=== PATIENT | female | born 1980 | race Caucasian/White ===

== ENCOUNTER 2017-11-05 22:12 | Emergency (ER) | payer OTHER ==
[2017-11-05] MEDS: LIDOCAINE WITH 8.4% SOD BICARB 3 ML DISP.SYRIN. INJ (23:52)
[2017-11-05] MEDS: DIPHTH,PERTUSS(ACELL),TET TOX 0.5 ML DISP.SYRIN. VAX IM (23:54)
[2017-11-06] MEDS: LIDOCAINE 2% 20 ML VIAL. IJ (00:20)
== END 2017-11-06 02:00 | disposition home or self-care (01) ==
LOC: ER 11-06 02:00
DX: S81.012A Laceration without foreign body, left knee, initial encounter (principal); K21.9 Gastro-esophageal reflux disease without esophagitis; F90.9 Attention-deficit hyperactivity disorder, unspecified type; F12.10 Cannabis abuse, uncomplicated; F17.200 Nicotine dependence, unspecified, uncomplicated; Z88.0 Allergy status to penicillin; Z88.1 Allergy status to other antibiotic agents; Z88.5 Allergy status to narcotic agent; Z88.6 Allergy status to analgesic agent; W01.0XXA Fall on same level from slipping, tripping and stumbling without subsequent striking against object, initial encounter; Y93.89 Activity, other specified; Y99.8 Other external cause status; Y92.89 Other specified places as the place of occurrence of the external cause
CPT/HCPCS: 12032; 73560; 73562; 90471; 90715; 99284-25; J2001

== ENCOUNTER 2017-11-16 15:56 | Emergency (ER) | payer OTHER ==
[2017-11-16] MEDS ORDERED: oxyCODONE ER 10 MG TAB.ER.12H PO (17:33)
== END 2017-11-16 17:49 | disposition home or self-care (01) ==
LOC: ER 17:49
DX: S81.012D Laceration without foreign body, left knee, subsequent encounter (principal); L08.9 Local infection of the skin and subcutaneous tissue, unspecified; K21.9 Gastro-esophageal reflux disease without esophagitis; Z88.0 Allergy status to penicillin; Z88.6 Allergy status to analgesic agent; Z88.1 Allergy status to other antibiotic agents; Z88.5 Allergy status to narcotic agent; X58.XXXD Exposure to other specified factors, subsequent encounter
CPT/HCPCS: 73564; 99284

== ENCOUNTER 2020-12-08 21:45 | Emergency (ER) | payer OTHER ==
[~2020-12-08] VITALS: Ht 177.8 cm; Wt 82.0 kg
[~2020-12-08 21:45] MED LIST: CEPH-264 PO; MUPI15CR TP; OXYC15TA3 PO; OXYC1TAB15 PO; SULF1TAB24 PO
[2020-12-08 22:15] VITALS: BP 126/68
--- NOTE | 2020-12-08 23:13 | PHYS DOC ---
Past Medical History Past Medical History: GERD Additional Past Medical Histor: ADHD, Past Surgical History: Tonsillectomy, Tubal ligation Additional Past Surgical Histo: LT ANKLE X2, TUBAL, T&A, VAGINAL RECONSTRUCTION Smoking Status: Current Every Day Smoker Alcohol Use: Rarely Drug Use: None General Adult EDM: Chief Complaint: MULTIPLE COMPLAINTS HPI: HPI: 40-year-old female past medical history of ADHD, GERD (on 3 medications for this by pcp) and urinary urgency on oxybutynin by her ENROLLMENT MANAGER, presents to the ED with her , (patient consents to his/her/their knowledge and involvement in pts' medical care), complaints of left-sided "numbness" in her left neck, ear, back of her skull and arm started few weeks ago. Patient states symptoms initially started with numbness in her fingertips. Describes the numbness as if her sensation is decreased, has no difficulties moving her upper extremities and reports no associated pain, joint swelling or rash. Reports has been seen by another physician and " no one can figure out why." Also complains of intermittent episodes of epigastric abdominal pain stating, "I'm pretty sure I have a hiatal hernia, and shows me shows me a webpage on her iphone regarding neuropathic and referred abdominal pain. Asks if I can diagnose this. Has never been seen by a GI physician. Also reports she follows up with a chiropractor 2 times a month for neck treatments stating "he resets me, is very gentle." No history of blunt head or neck injury or surgery. Has no rheumatologic disorders around her family. If right hand dominant. Review of Systems: Review of Systems: Constitutional: Denies fever or chills. [] Eyes: Denies change in visual acuity or discharge HENT: Denies nasal congestion or sore throat. [] Respiratory: Denies cough or shortness of breath. [] Cardiovascular: Denies chest pain or edema. [] GI: Denies nausea, vomiting, melena, hematochezia or hematemesis : Denies dysuria or vaginal bleeding Musculoskeletal: Denies back pain or joint pain. [] Integument: Denies rash or diaphoresis Neurologic: Denies headache or neck pain Endocrine: Denies polyuria or polydipsia. [] Lymphatic: Denies swollen glands. [] Psychiatric: Denies depression or anxiety. [] Heart Score: C/O Chest Pain: No Risk Factors: Risk Factors: DM, Current or recent (<one month) smoker, HTN, HLP, family history of CAD, obesity. Risk Scores: Score 0 - 3: 2.5% MACE over next 6 weeks - Discharge Home Score 4 - 6: 20.3% MACE over next 6 weeks - Admit for Clinical Observation Score 7 - 10: 72.7% MACE over next 6 weeks - Early Invasive Strategies Allergies: Allergies: Allergies Coded Allergies Type Severity Reaction Last Updated Verified Penicillins Allergy Intermediate 11/05/17 Yes acetaminophen Allergy Intermediate 11/05/17 Yes erythromycin base Allergy Intermediate 11/05/17 Yes hydrocodone Allergy Intermediate 11/05/17 Yes Physical Exam: PE: Constitutional: Well developed, well nourished, no acute distress, non-toxic appearance. HENT: Normocephalic, atraumatic, Eyes: PERRLA, EOMI, conjunctiva normal, no discharge. Neck: Normal range of motion, supple, no midline neck pain Cardiovascular: S1/2 present, regular rhythm Lungs & Thorax: Speaking in full sentences, bilateral equal chest rise, no tachypnea or increased work of breathing Abdomen: soft, no tenderness, Skin: Warm, dry, no erythema, no rash. [] Back: No midline tenderness, no CVA tenderness. [] Extremities: No tenderness, no cyanosis, Neurologic: GCS 15, NIHSS 0, equal upper extremity muscle strength, equal radial pulses, cap refill less than 1 second to both extremities, no muscle wasting, normal axillary nerve sensation bilaterally, alert and oriented X 3, normal motor function, normal sensory function, no focal deficits noted. [] Psychologic: Affect normal, judgement normal, mood normal. [] Current Patient Data: Labs: Laboratory Tests Test 12/08/20 22:05 POC Urine HCG, Qualitative Hcg negative (Negative) Vital Signs: Vital Signs Date Time Temp Pulse Resp B/P (MAP) Pulse Ox O2 Delivery O2 Flow Rate FiO2 12/08/20 22:15 98.6 18 126/68 (86) 98 Room Air 98.6 EKG: EKG: [] Radiology/Procedures: Radiology/Procedures: [] Course & Med Decision Making: Course & Med Decision Making Pertinent Labs and Imaging studies reviewed. (See chart for details) During hpi I spoke to pt regarding possibly doing a CT imaging of the abdomen/pelvis to evaluate other causes of epigastric pain but that a hiatal hernia is typically diagnosed as an outpt with GI. Pt declined CT imaging on initial presentation. Due to EMR downtime patient's images, ED work-up and discharge occurred during emr downtime. See paper records for MDM/impression/diagnosis. Dragon Disclaimer: Dragon Disclaimer: This electronic medical record was generated, in whole or in part, using a voice recognition dictation system. Departure Departure Impression: Primary Impression: Sinusitis Disposition: HOME / SELF CARE / HOMELESS Condition: STABLE Referrals: CHANCE VEGA (PCP) KAYLEE JEROME DO Dec 08, 2020 23:13
--- NOTE | 2020-12-08 23:21 | RAD ---
EXAMINATION: Chest radiograph. VIEWS: Single view COMPARISON: None INDICATION:40 years, Female, epigastric pain. FINDINGS: Normal cardiomediastinal silhouette. No focal consolidation. No pleural effusion or pneumothorax. No acute osseous process. IMPRESSION: No acute cardiopulmonary process. Electronically signed by: Ryan Vázquez MD (12/08/2020 11:18 PM) [facility]
[2020-12-08 23:23] LABS: AMPHETAMINE/METHAMPHETAMINE NEG (NEG); BARBITURATES NEG (NEG); BENZODIAZEPINES NEG (NEG); CANNABINOIDS POS (NEG); COCAINE NEG (NEG); METHADONE NEG (NEG); OPIATES NEG (NEG); PHENCYCLIDINE NEG (NEG)
--- NOTE | 2020-12-08 23:31 | RAD ---
EXAMINATION: CT head and cervical spine without IV contrast INDICATION:40 years, Female, left-sided numbness. COMPARISON: None TECHNIQUE: Spiral acquisition of contiguous images from the skull base to the vertex were obtained. C T of the cervical spine was obtained using contiguous spiral imaging from the skull base to the upper thoracic level. Sagittal and coronal 2D reformatted series were provided by the technologist. Soft t issue and bone window algorithms were reviewed. Exposure: One or more of the following individualized dose reduction techniques were utilized for thi s examination: 1. Automated exposure control 2. Adjustment of the mA and/or kV according to patient size 3. Use of iterative reconstruction technique. FINDINGS: CT HEAD: The ventricles are normal in size. Neither mass, midline shift, intracranial hemorrhage, acute/subacu te ischemic changes, nor extraaxial fluid collections are seen. The brain parenchyma is normal in ida earance. Mucosal thickening in bilateral maxillary, right frontal sinuses and right ethmoid air cells . Mastoid air cells, and middle ears are clear. The orbital contents appear within normal limits. CT CERVICAL SPINE: Anatomic alignment of the cervical spine is maintained. Neither fracture, subluxation, nor traumatic spondylolisthesis is seen. The vertebral body heights and intervertebral disk spaces are preserved. N o significant canal stenosis or neuroforaminal narrowing. There is no evidence of a large intraspinal hematoma. The prevertebral and paravertebral soft tissues are within normal limits. IMPRESSION: 1. No evidence of acute intracranial abnormality. 2. No evidence of fracture or traumatic spondylolisthesis of the cervical spine. 3. No significant cervical canal stenosis or neuroforaminal narrowing. 4. Bilateral maxillary, right frontal and right ethmoid sinusitis. Electronically signed by: Ryan Vázquez MD (12/08/2020 11:29 PM) [facility]
--- NOTE | 2020-12-09 05:26 | EKG ---
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
[2020-12-09 05:39] LABS: ALBUMIN 3.4 g/dL (3.4-5.0); CALCIUM 9.1 mg/dL (8.5-10.1); CREATININE 0.8 mg/dL (0.6-1.0); GFR 79.4; MAGNESIUM 2.2 mg/dL (1.8-2.4); POTASSIUM 3.8 mmol/L (3.5-5.1); TOTAL BILIRUBIN 0.3 mg/dL (0.2-1.0); TOTAL PROTEIN 6.8 g/dL (6.4-8.2)
[2020-12-09 08:21] LABS: BASO # 0.1 x10^3/uL (0.0-0.2); BASO % 1 % (0-3); EOS # 0.1 x10^3/uL (0.0-0.7); EOS % 2 % (0-3); HEMOGLOBIN 13.4 g/dL (12.0-15.5); LYMPH # 2.8 x10^3/uL (1.0-4.8); LYMPH % 32 % (24-48); MEAN CORPUSCULAR HEMOGLOBIN 33 pg (25-35); MEAN CORPUSCULAR HGB CONC 35 g/dL (31-37); MEAN CORPUSCULAR VOLUME 93 fL (79-100); MONO # 0.5 x10^3/uL (0.0-1.1); MONO % 6 % (0-9); NEUT % 59 % (31-73); PLATELET COUNT 264 x10^3/uL (140-400); WHITE BLOOD COUNT 8.5 x10^3/uL (4.0-11.0)
== END 2020-12-09 01:55 | disposition home or self-care (01) ==
LOC: ER 21:45
DX: J32.9 Chronic sinusitis, unspecified (principal); R10.13 Epigastric pain; R51.9 Headache, unspecified; M54.2 Cervicalgia; R07.89 Other chest pain; K21.9 Gastro-esophageal reflux disease without esophagitis; F90.9 Attention-deficit hyperactivity disorder, unspecified type; F17.200 Nicotine dependence, unspecified, uncomplicated; Z88.0 Allergy status to penicillin; Z88.1 Allergy status to other antibiotic agents; Z88.5 Allergy status to narcotic agent; Z88.6 Allergy status to analgesic agent
CPT/HCPCS: 36415; 70450; 71045; 72125; 80053; 80307; 81025; 83690; 83735; 83880; 84484; 85025; 93005; 99285-25